=== PATIENT | male | born 1975 | race Caucasian/White ===

== ENCOUNTER 2023-03-29 11:45 | Emergency (ER) | payer SELFPAY ==
[2023-03-29 11:51] VITALS: BP 142/96; PULSE 81; RESP 16; TEMP 37; O2SAT 98
--- NOTE | 2023-03-29 11:57 | ED.GENADUL1 ---
HPI - General Adult General Stated complaint: RASH/LUMP R SIDE Time Seen by Provider: 03/29/23 11:52 Source: patient Mode of arrival: walk-in History of Present Illness HPI narrative: 39-year-old patient here to skin rash. He does not have fever shakes or chills. He is not diabetic. He's otherwise good health. They're slightly sore. He's not had a influenza type symptoms. Does not involve his mouth eyes nares or the oral cavity. He's not on any antibiotics. He's not had MRSA infections before. Otherwise he does not have complaints today Related Data Allergies Allergy/AdvReac Type Severity Reaction Status Date / Time No Known Drug Allergies Allergy Verified 03/29/23 11:51 Exam Narrative Exam Narrative: well-hydrated well-nourished male appears in no apparent distress. He's got classic skin folliculitis involving the right axilla the left per Dr. right buttock dominant. There is no cellulitis or lymphangitis. There is no evidence of shingles. The rest a skin integument is normal and he does not appear ill. Medical Decision Making MDM Narrative Medical decision making narrative: this patient and his female treatment coordinator apparently just bought a hot tub recently. This is consistent with staph skin infection. He does not show any evidence of systemic infection. I will place him on Keflex four times a day for seven days. Use return should he develop fever chills or systemic illness. Otherwise this should resolve uncomplicated. Discharge Plan Discharge Clinical Impression: Infection, skin, staph Patient Disposition: Home, Self-Care Time of Disposition Decision: 11:59 Additional Instructions: Keflex for seven days. Return for fever shakes or other symptoms. Stand Alone Forms: Portal Instructions Referrals: Physician,Non-Staff, MD [Primary Care Provider] - 1 week
--- NOTE | 2023-03-29 12:15 | PC.NURSE ---
Rash and red hard area under left arm pit.
== END 2023-03-29 12:19 | disposition home or self-care (01) ==
PROVIDERS: Emergency Provider Emergency Medicine Emergency Medical Services
DX: L08.9 Local infection of the skin and subcutaneous tissue, unspecified (principal); B95.8 Unspecified staphylococcus as the cause of diseases classified elsewhere
CPT/HCPCS: 99283